=== PATIENT | male | born 1980 | race African-American/Black ===

== ENCOUNTER 2022-03-13 16:48 | Emergency (ER) | payer BC, SELFPAY ==
--- NOTE | ~2022-03-13 | US_ITS ---
US scrotum doppler DATE: 03/13/2022 18:32 INDICATION: Right scrotal pain, swelling, right scrotal lump TECHNIQUE: Real-time and color flow imaging and Doppler analysis of the scrotal contents COMPARISON: None FINDINGS: There is a 1.3 x 1 x 1.3 cm cyst of the head of the right epididymis. There is symmetric homogeneous echotexture of the testicles. No testicular mass lesion or torsion is evident. There is normal blood flow to both testicles. IMPRESSION: 1.3 cm cyst of head of right epididymis No testicular mass lesion or torsion Reviewed, dictated and finalized at [facility]. Reviewed, dictated and finalized at [facility]. CAL ADMINISTRATOR
--- NOTE | ~2022-03-13 | CT_ITS ---
EXAMINATION: CT abdomen pelvis w con DATE: 03/13/2022 19:05 INDICATION: Lower abdominal pain, suprapubic pain. TECHNIQUE: Computed tomography (CT) of the abdomen and pelvis was performed with 100 CC Omnipaque 350 intravenous contrast. Automated exposure control and iterative reconstruction technique were employe d. Exam dose: 1851.00 mGy-cm total exam DLP. COMPARISON: None. FINDINGS: The lung bases are clear. Normal heart size. No pericardial or pleural effusion. The liver, gallbladder, bile ducts, spleen, pancreas, pancreatic duct, and adrenal glands and kidneys are unremarkable. No urinary tract calculus or hydroureteronephrosis. The urinary bladder, prostate gland and seminal vesicles are unremarkable. Normal caliber of the abdominal aorta. No intraperitoneal or retroperitoneal or pelvic mass lesion or adenopathy or ascites. There is a prominent amount of fecal material within the colon but no bowel obstruction, bowel wall t hickening, pneumatosis or intraperitoneal free air is detected. No evidence of appendicitis is detect ed.. Small fat-containing umbilical hernia. Bilateral L5 pars interarticularis defects with associated grade 1 anterolisthesis at L5-S1. Moderate degenerative disc disease at L3-4 and L5-S1. IMPRESSION: Prominent amount of fecal material in the colon; no bowel obstruction No evidence of appendicitis is detected. Bilateral L5 pars interarticularis defects and associated grade 1 anterolisthesis at L5-S1 Reviewed, dictated and finalized at [facility]. Reviewed, dictated and finalized at [facility]. ING SPECIALIST IMPRESSION: Prominent amount of fecal material in the colon; no bowel obstruct ion No evidence of appendicitis is detected. Bilateral L5 pars interarticularis defects and associated grade 1 anterolisthes is at L5-S1
[2022-03-13 17:10] VITALS: BP 132/92; PULSE 86; RESP 18; TEMP 36.4; O2SAT 100
--- NOTE | 2022-03-13 17:39 | ED.ABDPAIN ---
HPI - Abdominal Pain General Chief Complaint: Abdominal Pain Stated Complaint: abd pain Time Seen by Provider: 03/13/22 17:19 Source: patient Mode of arrival: ambulatory Limitations: no limitations History of Present Illness HPI narrative: Patient is a 42-year-old male who presents to the ED with report of lower abdominal and R testicular pain. Patient reports he has had intermittent lower abdominal pain for the last 9 months. Pain is occasionally aggravated with urination, having bowel movements, intercourse. He has been taking ibuprofen intermittently for the pain which has provided some relief up until more recently. He last took ibuprofen 800mg this morning. He also reports having pain in his right testicle and a small lump in his right testicle, which has increased in size over the last 9 months. Patient has been evaluated for this pain several times at outside facilities. He reports he is typically given pain medicine and referred to urology, however he has been unable to find a urologist that takes his insurance. He denies any nausea, vomiting, diarrhea, constipation, rectal bleeding, fevers, external genital lesions, penile discharge, dysuria, hematuria, concern for STDs. Review of Systems Review of Systems: CONSTITUTIONAL: Denies fever, chills, or sweats. CARDIOVASCULAR: Denies chest pain, palpitations, or edema. RESPIRATORY: Denies cough or dyspnea. GASTROINTESTINAL: See HPI. GENITOURINARY: See HPI. SKIN: Denies rash or itching. MUSCULOSKELETAL: Denies back pain, joint pain, or myalgia. All systems reviewed & are unremarkable except as noted in HPI and below PMFSH Past Medical History Medical History (Updated 03/13/22 @ 20:23 by Carolyne Ornelas PA-C) No pertinent past medical history Surgical History Surgical History (Updated 03/13/22 @ 17:40 by Carolyne Ornelas PA-C) No pertinent past surgical history Social History Social History (Updated 03/13/22 @ 17:57 by Carolyne Ornelas PA-C) Smoking status: Never smoker Exam Narrative: GENERAL: Mildly uncomfortable appearing, morbidly obese, non-toxic. HEAD: Normocephalic, atraumatic. NECK: Supple. No adenopathy, no masses. RESPIRATORY: Airway patent, respirations nonlabored. Clear to auscultation bilaterally, no rales, rhonchi, wheezing. CARDIOVASCULAR: Regular rate and rhythm without murmurs, rubs, or gallops. Peripheral pulses 2+ and equal bilaterally. ABDOMINAL: Soft, tenderness throughout lower abdomen, worst in suprapubic region under pannus, nondistended, no hepatosplenomegaly. Normoactive BS. GENITAL: Normal external genitalia. Mild tenderness present throughout R testicle, with focal tenderness around marble-sized lump in superior/inferior testicle. No appreciable swelling. No redness/warmth. No penile discharge. No genital lesions. MUSCULOSKELETAL: Moves all extremities. Strength/ROM intact without gross deformities. SKIN: Warm, dry, normal color. No rashes. NEURO: A&O X3. Speech clear. Cranial nerves II-XII grossly intact. Steady gait. No ataxic movements. PSYCHIATRIC: Appropriate mood and affect. Normal interaction. Course Vital Signs Vital signs: Vital Signs Temperature 97.5 F L 03/13/22 17:10 Pulse Rate 86 03/13/22 17:10 Respiratory Rate 18 03/13/22 17:10 Blood Pressure 132/92 H 03/13/22 17:10 Pulse Oximetry 100 03/13/22 17:10 Oxygen Delivery Room Air 03/13/22 17:10 Temperature 97.5 F L 03/13/22 17:10 Pulse Rate 93 03/13/22 20:48 Respiratory Rate 15 03/13/22 20:48 Blood Pressure 124/76 03/13/22 20:48 Pulse Oximetry 100 03/13/22 20:48 Oxygen Delivery Room Air 03/13/22 17:10 MDM - Abdominal Pain MDM Narrative Medical decision making narrative: Patient presented to ED with 9-month history of intermittent lower abdominal and right testicular pain. Nodule noted to right testicle. Patient's vital stable upon arrival, though mildly uncomfortable appearing on exam due to pain. CBC and CMP u
[2022-03-13] MEDS: ONDANSETRON INJ 4 MG/2 ML VIAL IV PUSH (18:05)
[2022-03-13] MEDS: MORPHINE SULFATE (*CRX) 4 MG/ML INJ IV PUSH (18:06)
[2022-03-13 18:09] LABS: Basophils Percent Auto 0.4 % (0.2-1.2); Eosinophils Absolute Auto 0.3 K/mm3 (0-0.3); Eosinophils Percent Auto 4.1 % (0-4.4); Hemoglobin 13.6 g/dL (14.0-18.0); Immature Granulocyte Absolute 0.02 K/mm3 (0.00-0.031); Immature Granulocyte Percent A 0.3 % (0-0.5); Lymphocytes Absolute Auto 3.26 K/mm3 (0.9-3.2); Lymphocytes Percent Auto 47.4 % (18.3-44.2); Mean Corpuscular HGB Conc 33.2 g/dl (32-36); Mean Corpuscular Hemoglobin 30.2 pg (26-34); Mean Corpuscular Volume 90.9 fl (80-100); Monocytes Absolute Auto 0.4 K/mm3 (0.1-0.6); Monocytes Percent Auto 5.7 % (2.6-8.5); Neutrophils Absolute Auto 2.9 K/mm3 (1.3-6.7); Neutrophils Percent Auto 42.1 % (45.5-73.1); Platelet Count Result 296 k/mm3 (150-375); Red Blood Count 4.51 M/mm3 (4.6-6.20); White Blood Count 6.9 K/mm3 (4.5-10.0)
[2022-03-13 18:19] LABS: Alanine Aminotransferase 57 U/L (6-50); Albumin Level 3.9 g/dL (3.5-5.1); Alkaline Phosphatase 69 U/L (38-126); Anion Gap 6 mmol/L (8-16); Aspartate Amino Transferase 38 U/L (17-59); Bilirubin,Total 0.2 mg/dL (0.2-1.3); Blood Urea Nitrogen 14 mg/dL (9-20); Carbon Dioxide 25 mmol/L (22-30); Chloride 107 mmol/L (98-107); Estimated CRCL calculation 154 ml/min; Estimated Glomerular Filt Rate > 60; Glucose 125 mg/dL (65-110); Lipase 80 U/L (23-300); Potassium 4.2 mmol/L (3.4-5.0); Sodium 138 mmol/L (137-145)
[2022-03-13 19:33] LABS: Appearance Urine Clear (Clear); Bilirubin Urine Negative (Negative); Blood Urine Trace-intact (Negative); Color Urine Yellow (Yellow); Glucose Urine UA Negative (Negative); Ketones Urine Trace mg/dL (Negative); Leukocyte Esterase Ur Negative LEU/UL (Negative); Nitrate Urine Negative (Negative); Protein Urine Negative (Negative); Urobilinogen Urine 0.2 mg/dL (<2.0)
[2022-03-13 19:39] LABS: Mucus Urine Rare /lpf; Squamous Epithelial Cell Urine Rare /hpf (Few); WBC Urine 0-3 /hpf
[2022-03-13] MEDS: KETOROLAC 30 MG/ML VIAL (*BKC) IV PUSH (19:39)
[2022-03-13 19:40] LABS: Add Urine Microscopic? YES
[2022-03-13 20:04] VITALS: BP 121/66; PULSE 76; RESP 14; O2SAT 100
[2022-03-13 20:48] VITALS: BP 124/76; PULSE 93; RESP 15; O2SAT 100
== END 2022-03-13 20:48 | disposition home or self-care (01) ==
PROVIDERS: Emergency Provider Physician Assistant
DX: R10.30 Lower abdominal pain, unspecified (principal); N50.3 Cyst of epididymis
CPT/HCPCS: 36415; 74177; 76870; 80053; 81001; 83690; 85025; 87491; 87591; 93976; 96374; 96375; 99284; J1885; J2270; J2405; Q9967

== ENCOUNTER 2023-08-27 13:50 | Emergency (ER) | payer MEDICAID, SELFPAY ==
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
--- NOTE | ~2023-08-27 | XR_ITS ---
XR chest 2V Ordering provider: Tammy Clarke MD History: 43 years Male with . chest pain . Comparison: None. FINDINGS: MEDIASTINUM: The cardiac silhouette is not enlarged. LUNGS: No infiltrates, effusions or pneumothorax. OTHER: No free air under the diaphragm. IMPRESSION: No acute cardiopulmonary pathology. Reviewed, dictated and finalized at [facility].
[2023-08-27 13:54] VITALS: BP 138/100; PULSE 118; RESP 18; TEMP 37; O2SAT 97
--- NOTE | 2023-08-27 13:59 | ECG_ITS ---
Test Date: 2023-08-27 14:02:04 Measurements Intervals [place] Rate: 106 P: 71 DC: 137 QRS: -39 QRSD: 113 T: 16 QT: 335 QTc: 447 Interpretive Statements SINUS TACHYCARDIA Left anterior superior hemiblock abnormal ECG No previous ECG available for comparison Electronically Signed On 08-28-2023 07:16:44 CDT by Neri Martin M.D.
[2023-08-27 14:25] LABS: Basophils Percent Auto 0.5 % (0.2-1.2); Eosinophils Absolute Auto 0.3 K/mm3 (0-0.3); Eosinophils Percent Auto 4.1 % (0-4.4); Hematocrit 45.3 % (42.0-52.0); Hemoglobin 14.9 g/dL (14.0-18.0); Immature Granulocyte Absolute 0.03 K/mm3 (0.00-0.031); Immature Granulocyte Percent A 0.4 % (0-0.5); Lymphocytes Absolute Auto 2.63 K/mm3 (0.9-3.2); Lymphocytes Percent Auto 32.5 % (18.3-44.2); Mean Corpuscular HGB Conc 32.9 g/dl (32-36); Mean Corpuscular Hemoglobin 28.9 pg (26-34); Mean Corpuscular Volume 87.8 fl (80-100); Mean Platelet Volume 9.4 fl (7.4-10.4); Monocytes Absolute Auto 0.5 K/mm3 (0.1-0.6); Monocytes Percent Auto 6.3 % (2.6-8.5); Neutrophils Absolute Auto 4.5 K/mm3 (1.3-6.7); Neutrophils Percent Auto 56.2 % (45.5-73.1); Platelet Count Result 340 k/mm3 (150-375); Red Blood Count 5.16 M/mm3 (4.6-6.20); Red Cell Distribution Width 15.9 % (11.5-14.5); White Blood Count 8.1 K/mm3 (4.5-10.0)
[2023-08-27 14:34] LABS: Prothrombin Time 13.8 Seconds (11.1-14.7)
[2023-08-27 15:21] LABS: Alanine Aminotransferase 22 U/L (6-50); Albumin Level 4.4 g/dL (3.5-5.1); Alkaline Phosphatase 68 U/L (38-126); Anion Gap 9 mmol/L (4-12); Aspartate Amino Transferase 23 U/L (17-59); Bilirubin,Total 0.5 mg/dL (0.2-1.3); Blood Urea Nitrogen 11 mg/dL (9-20); Calcium 10.4 mg/dL (8.4-10.2); Carbon Dioxide 22 mmol/L (22-30); Chloride 109 mmol/L (98-107); Estimated CRCL calculation 176 ml/min; Estimated Glomerular Filt Rate > 60; Glucose 106 mg/dL (65-110); Lipase 92 U/L (23-300); Potassium 3.9 mmol/L (3.4-5.0); Sodium 140 mmol/L (137-145)
[2023-08-27 15:32] LABS: Troponin I < 0.012 ng/mL (0.000-0.034)
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
[2023-08-27] MEDS: HYDROcodone/acetaminophen (*CRX) 5-325 MG TABLET 1 TAB PO (16:19)
[2023-08-27] MEDS: CYCLOBENZAPRINE HCL 10 MG TABLET PO (16:19)
== END 2023-08-27 17:40 | disposition home or self-care (01) ==
PROVIDERS: Emergency Medicine; Emergency Provider Emergency Medicine
DX: R07.9 Chest pain, unspecified (principal); R00.0 Tachycardia, unspecified; I44.4 Left anterior fascicular block
CPT/HCPCS: 36415; 71046; 71260; 74177; 80053; 83690; 84484; 85025; 85610; 85730; 93005; 99284; A9270; Q9967